=== PATIENT | female | born 1990 | race Caucasian/White ===

== ENCOUNTER 2016-06-29 11:15 | Emergency (ER) | payer MEDICAID ==
[2016-06-29] MEDS ORDERED: NS 1,000 ML IV ONE ×2 (11:26→13:20)
[2016-06-29 12:15] LABS: % IMMATURE GRANULYOCYTES 0.2 % (0.0-1.1); ABSOLUTE IMMATURE GRANULOCYTES 0.01 10^3/uL (0.00-0.10); ADD DIFF? NO; ADD MORPH? NO; ADD SCAN? NO; ATYPICAL LYMPHOCYTE FLAG 40 (0-99); FRAGMENT RBC FLAG 0 (0-99); HEMATOCRIT 34.6 % (38.0-47.0); HEMOGLOBIN 11.7 g/dL (12.6-16.3); LEFT SHIFT FLG 0 (0-99); LIPEMIA HEMOLYSIS FLAG 90 (0-99); MEAN CELL HEMOGLOBIN 30.8 pg (27.9-34.1); MEAN CELL HEMOGLOBIN CONCENTR. 33.8 g/dL (32.4-36.7); MEAN CELL VOLUME 91.1 fL (81.5-99.8); MEAN PLATELET VOLUME 9.8 fL (8.7-11.7); PLATELET CLUMPS FLAG 20 (0-99); PLATELET COUNT 234 10^3/uL (150-400); RED CELL DISTRIBUTION WIDTH 12.3 % (11.5-15.2)
[2016-06-29] MEDS ORDERED: OSELTAMIVIR PHOSPHATE 75 MG CAP PO ONE (12:24)
[2016-06-29 12:53] LABS: ANION GAP 3 mEq/L (8-16); CALCIUM 7.5 mg/dL (8.5-10.4); CARBON DIOXIDE 24 mEq/l (22-31); CHLORIDE 110 mEq/L (97-110); CREATININE 0.6 mg/dL (0.6-1.0); GLOMERULAR FILTRATION RATE > 60; GLUCOSE 213 mg/dL (70-100); MAGNESIUM 1.7 mg/dL (1.6-2.3); POTASSIUM 3.6 mEq/L (3.5-5.2); SODIUM 137 mEq/L (134-144)
[2016-06-29 13:09] LABS: COLOR PALE YELLOW; LEUKOCYTE ESTERASE,URINE NEGATIVE (NEGATIVE); NITRITE,URINE NEGATIVE (NEGATIVE)
--- NOTE | 2016-06-29 13:36 | EDPHY ---
H & P Stated Complaint: "I've been sick and BGL is high" Low grade fever,slight nausea earlier Time Seen by Provider: 06/29/16 11:26 HPI/ROS: Chief complaint: Sick with elevated blood sugars History of present illness: This is a 26-year-old female with a history of insulin-dependent diabetes who presents to the emergency department stating she has been sick over the last day. She has noted over this time her blood sugars have risen, she states they have gone up into the 300's. Patient reports fevers , malaise and body aches. She denies precipitating factors. She denies alleviating factors. She denies other associated signs or symptoms. - Personal History LMP (Females 10-55): 8-14 Days Ago Current Tetanus Diphtheria and Acellular Pertussis (TDAP): Yes - Medical/Surgical History Hx Diabetes: Yes Other PMH: Juvenile diabetes - Social History Smoking Status: Never smoked - Physical Exam Exam: General Appearance: Alert, nontoxic. Eyes: Pupils equal and round no pallor or injection. ENT: Tympanic membranes, external auditory canals, external ears and surrounding soft tissue including over the mastoids are unremarkable. Nasopharynx is not injected. There is no rhinorrhea. Oropharynx is not injected. There is no edema. There is no exudate. There is no asymmetry. The uvula is midline. No elevation of the tongue. There is no hoarseness, no drooling, no trismus, no stridor. Respiratory: There are no retractions, lungs are clear to auscultation. Cardiovascular: Regular rate and rhythm. Gastrointestinal: Abdomen is soft and non tender, no masses, bowel sounds normal. Genitourinary: No CVA tenderness. Neurological: Alert and oriented x4. Strength and sensation intact and symmetrical. No meningismus. Skin: Warm and dry, no rashes. Musculoskeletal: Neck is supple non tender. Extremities are symmetrical, full range of motion. Psychiatric: Patient is oriented X 3, there is no agitation. Constitutional: Initial Vital Signs Temperature (C) 36.5 C 06/29/16 11:16 Heart Rate 107 H 06/29/16 11:16 Respiratory Rate 18 06/29/16 11:16 Blood Pressure 122/74 H 06/29/16 11:16 O2 Sat (%) 95 06/29/16 11:16 O2 Delivery Mode Room Air Allergies/Adverse Reactions: No Known Allergies Allergy (Unverified 06/29/16 11:21) Home Medications: Medication Instructions Recorded Insulin Aspart [Novolog Flexpen] 100 unit SQ 06/29/16 Insulin Detemir [Levemir Flextouch] 100 unit SQ 06/29/16 Oseltamivir Phosphate [Tamiflu 75 75 mg PO BID #9 cap 06/29/16 mg (*)] Medical Decision Making ED Course/Re-evaluation: Patient discussed with my secondary supervising physician Dr. Shakir Farrell. Patient presents to the emergency department for cold symptoms and hyperglycemia. On presentation she is nontoxic. Afebrile and vital signs are stable. She has been IV hydrated with multiple liters of fluid. Flu swab is positive, she is started on Tamiflu. She is mildly hyperglycemic but no evidence of complications. Again she has been hydrated. I believe patient is appropriate for outpatient management. She will be discharged home. Home care is discussed including closely watching her sugars. She will be treated with a course of Tamiflu. She is asked to follow up with her primary care doctor for recheck. Strict return precautions are given. Patient voiced understanding and agreement with plan. Differential Diagnosis: Included but not limited to influenza, upper respiratory tract infections, lower respiratory tract infections, hyperglycemia, DKA, HHNK - Data Points Laboratory Results: Laboratory Results 06/29/16 11:50 06/29/16 11:50 06/29/16 06/29/16 06/29/16 12:30 11:50 11:30 WBC 4.56 10^3/uL (3.80-9.50) RBC 3.80 L 10^6/uL (4.18-5.33) Hgb 11.7 L g/dL (12.6-16.3) Hct 34.6 L % (38.0-47.0) MCV 91.1 fL (81.5-99.8) MCH 30.8 pg (27.9-34.1) MCHC 33.8 g/dL (32.4-36.7) RDW 12.3 % (11.5-15.2) Plt Count 234 10^3/uL (150-400) MPV 9.8 fL (8.7-11.7) Neut % (Auto) 58.8 % (39.3-74.2) Lymph % (Auto) 26.5 % (15.0-45.0) [place] % (Auto) 13.6 H % (4.5-13.0) Eos % (Auto) 0.2 L % (0.6-7.6) Baso % (Auto) 0.7 % (0.3-1.7) Nucleat RBC Rel Count 0.0 % (0.0-0.2) Absolute Neuts (auto) 2.68 10^3/uL (1.70-6.50) Absolute Lymphs (auto) 1.21 10^3/uL (1.00-3.00) Absolute Monos (auto) 0.62 10^3/uL (0.30-0.80) Absolute Eos (auto) 0.01 L 10^3/uL (0.03-0.40) Absolute Basos (auto) 0.03 10^3/uL (0.02-0.10) Absolute Nucleated RBC 0.00 10^3/uL (0-0.01) Immature Gran % 0.2 % (0.0-1.1) Immature Gran # 0.01 10^3/uL (0.00-0.10) Sodium 137 mEq/L (134-144) Potassium 3.6 mEq/L (3.5-5.2) Chloride 110 mEq/L (97-110) Carbon Dioxide 24 mEq/l (22-31) Anion Gap 3 mEq/L (8-16) BUN 7 mg/dL (7-23) Creatinine 0.6 mg/dL (0.6-1.0) Estimated GFR > 60 Glucose 213 H mg/dL (70-100) Calcium 7.5 L mg/dL (8.5-10.4) Phosphorus 2.9 mg/dL (2.5-4.5) Magnesium 1.7 mg/dL (1.6-2.3) Beta-Hydroxybutyrate 0.14 mmol/L (0.02-0.27) Urine Color PALE YELLOW Urine Appearance CLEAR Urine pH 6.0 (5.0-7.5) Ur Specific [place] 1.003 (1.002-1.030) Urine Protein NEGATIVE (NEGATIVE) Urine Ketones NEGATIVE (NEGATIVE) Urine Blood NEGATIVE (NEGATIVE) Urine Nitrate NEGATIVE (NEGATIVE) Urine Bilirubin NEGATIVE (NEGATIVE) Urine Urobilinogen NEGATIVE EU (0.2-1.0) Ur Leukocyte Esterase NEGATIVE (NEGATIVE) Urine RBC 1-3 /hpf (0-3) Urine WBC 1-3 /hpf (0-3) Ur Epithelial Cells TRACE /lpf (NONE-1+) Urine Glucose 2+ H (NEGATIVE) Influenza Typ A,B (DFA) POSITIVE FOR FLU A H (NEGATIVE) Medications Given: Discontinued Medications Sodium Chloride (Ns) 1,000 mls @ 0 mls/hr IV ONCE ONE PRN Reason: Wide Open Stop: 06/29/16 11:27 Last Admin: 06/29/16 11:33 Dose: 1,000 mls Sodium Chloride (Ns) 1,000 mls @ 0 mls/hr IV ONCE ONE PRN Reason: Wide Open Stop: 06/29/16 13:21 Last Admin: 06/29/16 14:04 Dose: 1,000 mls Oseltamivir Phosphate (Tamiflu) 75 mg PO EDNOW ONE Stop: 06/29/16 12:25 Last Admin: 06/29/16 12:36 Dose: 75 mg Departure - Departure Disposition: Home, Routine, Self-Care Clinical Impression: Hyperglycemia, Influenza Condition: Good Instructions: Diabetic Hyperglycemia (ED), Influenza (ED) Additional Instructions: Follow-up with the primary care doctor this week for recheck Take anti flu medication as prescribed Keep a very close eye on your sugars while you are sick If symptoms worsen or new symptoms develop return to the emergency department for recheck Referrals: OUT OF STATE,. [Primary Care Provider] - As per Instructions Prescriptions: Oseltamivir Phosphate [Tamiflu 75 mg (*)] 75 mg PO BID #9 cap
[2016-06-29 13:51] LABS: B-HYDROXYBUTYRATE 0.14 mmol/L (0.02-0.27)
[2016-06-29 14:04] VITALS: PULSE 78; RESP 16; O2SAT 97
[2016-06-29 14:06] VITALS: BP 103/85; TEMP 98.4
== END 2016-06-29 14:08 | disposition home or self-care (01) ==
DX: E10.65 Type 1 diabetes mellitus with hyperglycemia (principal); J11.1 Influenza due to unidentified influenza virus with other respiratory manifestations

== ENCOUNTER 2017-02-03 11:37 | Emergency (ER) | payer SELFPAY ==
[2017-02-03 11:45] VITALS: O2SAT 99
--- NOTE | 2017-02-03 12:41 | EDPHY ---
H & P Time Seen by Provider: 02/03/17 12:39 HPI/ROS: CHIEF COMPLAINT: High blood sugar HISTORY OF PRESENT ILLNESS: 26-year-old woman has had insulin-dependent diabetes for many years. She was on the Medtronic pump for 4 years and then on the Omnipod for 1 year. She was then off the insulin pump and has been using injections for 1 year and is back on the Omnipod for the last 2 months. She presents today with nausea and her glucose 195 up to 400 this morning. Denies any other signs or symptoms of illness. REVIEW OF SYSTEMS: Eye: no change in vision ENT: no sore throat Cardiac: no chest pain or syncope Pulmonary: no cough or SOB Abdomen: no vomiting, diarrhea, abdominal pain Musculoskeletal: no back pain Skin: no rash Neuro: no headache Constitutional: no fever : no urinary symptoms, denies A comprehensive 10 point review of systems is otherwise negative aside from elements mentioned in the history of present illness. PAST MEDICAL HISTORY: The insulin-dependent diabetes Social history: Primary care in [place], no alcohol General Appearance: Alert and conversant, cooperative. Eyes: No scleral icterus. ENT, Mouth: Normal mucous membranes. Respiratory: Normal respiratory effort, breath sounds equal, lungs are clear to auscultation. Cardiovascular: Regular rate and rhythm. Gastrointestinal: Abdomen is soft and non tender. Neurological: Alert and oriented x3. Normally conversant. Face symmetric, normal movement and sensation in all extremities. Skin: Warm and dry, no rashes. Musculoskeletal: No peripheral edema and no joint swelling. Psychiatric: Not agitated. Emergency Department course/MDM: I-STAT glucose 455, normal saline 2 L and 10 units insulin IV. 1615: Results discussed, patient thinks her hyperglycemia is due to pump malfunction. Her repeat glucose here is 165-204 with normal potassium. I think she is stable to be discharged with current therapy. Smoking Status: Never smoked Constitutional: Initial Vital Signs Temperature (C) 36.6 C 02/03/17 11:43 Heart Rate 77 02/03/17 11:43 Respiratory Rate 20 02/03/17 11:43 Blood Pressure 119/81 H 02/03/17 11:43 O2 Sat (%) 99 02/03/17 11:43 O2 Delivery Mode Room Air Allergies/Adverse Reactions: No Known Allergies Allergy (Verified 02/03/17 11:42) Home Medications: Medication Instructions Recorded Insulin Aspart [Novolog Flexpen] 100 unit SQ 06/29/16 Insulin Detemir [Levemir Flextouch] 100 unit SQ 06/29/16 Medical Decision Making - Data Points Laboratory Results: Laboratory Results 02/03/17 12:30 02/03/17 12:30 02/03/17 02/03/17 02/03/17 15:32 15:13 12:30 WBC RBC Hgb POC Hgb 11.6 gm/dL L gm/dL (12.6-16.3) Hct POC Hct 34 % L % (38-47) MCV MCH MCHC RDW Plt Count MPV Neut % (Auto) Lymph % (Auto) [place] % (Auto) Eos % (Auto) Baso % (Auto) Nucleat RBC Rel Count Absolute Neuts (auto) Absolute Lymphs (auto) Absolute Monos (auto) Absolute Eos (auto) Absolute Basos (auto) Absolute Nucleated RBC Immature Gran % Immature Gran # POC Sodium 140 mEq/L mEq/L (134-144) Sodium POC Potassium 3.8 mEq/L mEq/L (3.3-5.0) Potassium POC Chloride 107 mEq/L mEq/L (97-110) Chloride Carbon Dioxide Anion Gap POC BUN 23 mg/dL mg/dL (7-23) BUN Creatinine POC Creatinine 0.7 mg/dL mg/dL (0.6-1.0) Estimated GFR Glucose POC Glucose 204 mg/dL H mg/dL 165 mg/dL H mg/dL (70-100) (70-100) Calcium Beta HCG, Qual NEGATIVE 02/03/17 02/03/17 02/03/17 12:30 12:30 12:27 WBC 9.10 10^3/uL 10^3/uL (3.80-9.50) RBC 4.57 10^6/uL 10^6/uL (4.18-5.33) Hgb 13.8 g/dL g/dL (12.6-16.3) POC Hgb 15.3 gm/dL gm/dL (12.6-16.3) Hct 42.4 % % (38.0-47.0) POC Hct 45 % % (38-47) MCV 92.8 fL fL (81.5-99.8) MCH 30.2 pg pg (27.9-34.1) MCHC 32.5 g/dL g/dL (32.4-36.7) RDW 12.3 % % (11.5-15.2) Plt Count 333 10^3/uL 10^3/uL (150-400) MPV 10.1 fL fL (8.7-11.7) Neut % (Auto) 71.6 % % (39.3-74.2) Lymph % (Auto) 22.3 % % (15.0-45.0) [place] % (Auto) 4.4 % L % (4.5-13.0) Eos % (Auto) 0.8 % % (0.6-7.6) Baso % (Auto) 0.7 % % (0.3-1.7) Nucleat RBC Rel Count 0.0 % % (0.0-0.2) Absolute Neuts (auto) 6.52 10^3/uL H 10^3/uL (1.70-6.50) Absolute Lymphs (auto) 2.03 10^3/uL 10^3/uL (1.00-3.00) Absolute Monos (auto) 0.40 10^3/uL 10^3/uL (0.30-0.80) Absolute Eos (auto) 0.07 10^3/uL 10^3/uL (0.03-0.40) Absolute Basos (auto) 0.06 10^3/uL 10^3/uL (0.02-0.10) Absolute Nucleated RBC 0.00 10^3/uL 10^3/uL (0-0.01) Immature Gran % 0.2 % % (0.0-1.1) Immature Gran # 0.02 10^3/uL 10^3/uL (0.00-0.10) POC Sodium 133 mEq/L L mEq/L (134-144) Sodium 132 mEq/L L mEq/L (134-144) POC Potassium 5.6 mEq/L H mEq/L (3.3-5.0) Potassium 5.8 mEq/L H mEq/L (3.5-5.2) POC Chloride 98 mEq/L mEq/L (97-110) Chloride 96 mEq/L L mEq/L (97-110) Carbon Dioxide 21 mEq/l L mEq/l (22-31) Anion Gap 15 mEq/L mEq/L (8-16) POC BUN 26 mg/dL H mg/dL (7-23) BUN 26 mg/dL H mg/dL (7-23) Creatinine 0.7 mg/dL mg/dL (0.6-1.0) POC Creatinine 0.8 mg/dL mg/dL (0.6-1.0) Estimated GFR > 60 Glucose 491 mg/dL H mg/dL (70-100) POC Glucose 455 mg/dL H mg/dL (70-100) Calcium 9.1 mg/dL mg/dL (8.5-10.4) Beta HCG, Qual Medications Given: Discontinued Medications Sodium Chloride (Ns) 1,000 mls @ 0 mls/hr IV EDNOW ONE; Wide Open PRN Reason: Protocol Stop: 02/03/17 13:08 Last Admin: 02/03/17 13:15 Dose: 1,000 mls Sodium Chloride (Ns) 1,000 mls @ 0 mls/hr IV EDNOW ONE; Wide Open PRN Reason: Protocol Stop: 02/03/17 13:09 Last Admin: 02/03/17 13:22 Dose: 1,000 mls Insulin Human Regular (Humulin R) 10 unit IVP EDNOW ONE Stop: 02/03/17 13:09 Last Admin: 02/03/17 13:20 Dose: 10 units Ondansetron HCl (Zofran) 4 mg IVP EDNOW ONE Stop: 02/03/17 13:09 Last Admin: 02/03/17 13:15 Dose: 4 mg Point of Care Test Results: 02/03/17 02/03/17 02/03/17 12:27 15:13 15:32 POC Sodium 133 L 140 POC Potassium 5.6 H 3.8 POC Chloride 98 107 POC BUN 26 H 23 POC Creatinine 0.8 0.7 POC Glucose 455 H 165 H 204 H Departure - Departure Disposition: Home, Routine, Self-Care Clinical Impression: Hyperglycemia due to type 1 diabetes mellitus Condition: Good Instructions: Diabetic Hyperglycemia (ED) Referrals: PHUONG BROWN [Other] - As per Instructions
[2017-02-03] MEDS ORDERED: NS 1,000 ML IV ONE ×2 (13:07→13:08)
[2017-02-03] MEDS ORDERED: ONDANSETRON 4 MG/2 ML VIAL IVP ONE (13:08)
[2017-02-03] MEDS ORDERED: INSULIN REGULAR HUMAN 100 UNIT/ML IVP ONE (13:08)
[2017-02-03 13:14] LABS: % IMMATURE GRANULYOCYTES 0.2 % (0.0-1.1); ABSOLUTE IMMATURE GRANULOCYTES 0.02 10^3/uL (0.00-0.10); ADD DIFF? NO; ADD MORPH? NO; ADD SCAN? NO; ATYPICAL LYMPHOCYTE FLAG 10 (0-99); FRAGMENT RBC FLAG 0 (0-99); HEMATOCRIT 42.4 % (38.0-47.0); HEMOGLOBIN 13.8 g/dL (12.6-16.3); LEFT SHIFT FLG 0 (0-99); LIPEMIA HEMOLYSIS FLAG 80 (0-99); MEAN CELL HEMOGLOBIN 30.2 pg (27.9-34.1); MEAN CELL HEMOGLOBIN CONCENTR. 32.5 g/dL (32.4-36.7); MEAN CELL VOLUME 92.8 fL (81.5-99.8); MEAN PLATELET VOLUME 10.1 fL (8.7-11.7); PLATELET CLUMPS FLAG 20 (0-99); PLATELET COUNT 333 10^3/uL (150-400); RED BLOOD CELL COUNT 4.57 10^6/uL (4.18-5.33); RED CELL DISTRIBUTION WIDTH 12.3 % (11.5-15.2)
[2017-02-03 13:19] LABS: ANION GAP 15 mEq/L (8-16); CALCIUM 9.1 mg/dL (8.5-10.4); CARBON DIOXIDE 21 mEq/l (22-31); CHLORIDE 96 mEq/L (97-110); CREATININE 0.7 mg/dL (0.6-1.0); GLOMERULAR FILTRATION RATE > 60; GLUCOSE 491 mg/dL (70-100); POTASSIUM 5.8 mEq/L (3.5-5.2); SODIUM 132 mEq/L (134-144)
[2017-02-03] MEDS ORDERED: INSULIN REGULAR HUMAN 100 UNIT/ML ONE (13:20)
[2017-02-03 14:09] VITALS: RESP 16
[2017-02-03 16:28] VITALS: BP 112/80; PULSE 65; TEMP 98.1
== END 2017-02-03 16:30 | disposition home or self-care (01) ==
DX: E10.65 Type 1 diabetes mellitus with hyperglycemia (principal); E86.9 Volume depletion, unspecified
CPT/HCPCS: 82947-QW; 96374; J1815; J2405